=== PATIENT | male | born 1965 | race Caucasian/White ===

== ENCOUNTER 2020-12-25 03:35 | Inpatient (IN) | payer MEDICAID, SELFPAY ==
[~2020-12-25] VITALS: Ht 180.3 cm; Wt 88.5 kg
--- NOTE | 2020-12-25 03:42 | NUR ---
Patient to ER bed 7 to gown for evaluation. Side rails up.
[2020-12-25 03:43] VITALS: BP_SYST 172
--- NOTE | 2020-12-25 03:45 | NUR ---
# 20 gauge angiocath placed to LAC. Use of asceptic technique. Opsite placed over site. Blood return noted. Blood for lab drawn from site. Flushed with 10 cc of normal saline. No evidence of infiltration noted. Patient tolerated well.
--- NOTE | 2020-12-25 03:51 | NUR ---
Pt BIB family to ED C/O acute CP substernal / non-radiating Hx of heart cath / stents placement x 3 No allergies, VSS Resting on gurney rails up
--- NOTE | 2020-12-25 03:53 | NUR ---
Dr. Monae bedside for pt eval
[2020-12-25] MEDS ORDERED: CLOP75TA32 PO (04:00)
[2020-12-25] MEDS ORDERED: ASPI-1393 PO (04:00)
[2020-12-25] MEDS ORDERED: METO25TA6 PO (04:00)
[2020-12-25] MEDS ORDERED: MORPHINE 4 MG INJ. 4 MG/ML VIAL ONE (04:04)
[2020-12-25] MEDS ORDERED: MORPHINE 2 MG/ML INJ. SYRINGE ONE (04:05)
[2020-12-25] MEDS ORDERED: MORPHINE 4 MG INJ. 4 MG/ML VIAL IVP ONE (04:15)
[2020-12-25 04:27] LABS: BASOPHILS # (AUTO) 0.1 K/uL (0.0-0.2); BASOPHILS % (AUTO) 1.1 % (0.0-2.0); EOSINOPHILS # (AUTO) 0.1 K/uL (0.0-0.4); EOSINOPHILS % (AUTO) 1.2 % (0.0-4.0); HEMATOCRIT 45.1 % (36-54); HEMOGLOBIN 15.3 g/dL (14.0-18.0); LYMPHOCYTES # (AUTO) 1.8 K/uL (1.0-5.5); LYMPHOCYTES % (AUTO) 28.9 % (20.5-51.5); MEAN CORPUSCULAR HEMOGLOBIN 30 pg (27-31); MEAN CORPUSCULAR HGB CONC 34 % (32-36); MEAN CORPUSCULAR VOLUME 89 fL (79.0-98.0); MONOCYTES # (AUTO) 0.8 K/uL (0.0-1.0); MONOCYTES % (AUTO) 12.8 % (1.7-9.3); NEUTROPHILS # (AUTO) 3.6 K/uL (1.8-7.7); PLATELET COUNT (AUTO) 307 K/uL (130-430); RED BLOOD CELL COUNT(AUTO) 5.08 MIL/uL (4.2-6.2); RED CELL DISTRIBUTION WIDTH 14.2 % (9.0-15.0); WHITE BLOOD COUNT (AUTO) 6.3 K/uL (4.8-10.8)
[2020-12-25 04:33] LABS: CALCIUM 8.7 mg/dL (8.4-11.0); CREATININE 0.93 mg/dL (0.55-1.30); POTASSIUM 3.8 mmol/L (3.5-5.1)
[2020-12-25 04:37] LABS: INR 0.8 (0.80-1.20)
[2020-12-25 04:39] LABS: TOTAL BILIRUBIN 0.2 mg/dL (0.0-1.0)
[2020-12-25] MEDS ORDERED: IOHEXOL 350 mgI/mL, 150 ML INFUS..BTL IV ONE (04:39)
--- NOTE | 2020-12-25 04:50 | NUR ---
Portable X Ray bedside well tolerated
[2020-12-25] MEDS ORDERED: NITROGLYCERIN 0.4 MG TAB.SUBL SL ONE (05:00)
--- NOTE | 2020-12-25 05:08 | NUR ---
Pt taken to Radiology for IV contrast CT studies
[2020-12-25] MEDS ORDERED: ONDANSETRON HCL 4 MG/2 ML VIAL IVP ONE ×2 (05:30→10:45)
--- NOTE | 2020-12-25 05:31 | NUR ---
Pt back from Radiology well tolerated
[2020-12-25] MEDS ORDERED: KETOROLAC TROMETHAMINE 15 MG VIAL IVP ONE (06:15)
[2020-12-25] MEDS ORDERED: MORPHINE 2 MG/ML INJ. SYRINGE IVP PRN ×2 (07:00)
--- NOTE | 2020-12-25 07:05 | NUR ---
REPORT RECEIVED FROM PAXTON SINGH FOR CONTINUING CARE
--- NOTE | 2020-12-25 07:25 | NUR ---
PT RESTING IN [facility], AAOX4, NO DISTRESS NOTED
--- NOTE | 2020-12-25 07:51 | NUR ---
BREAKFAST TRAY PROVIDED TO PT
--- NOTE | 2020-12-25 08:22 | NUR ---
CONSULT CALLED PAGED DR SCOTT [phone] LEFT MESSAGE WITH DR ANDRADE
--- NOTE | 2020-12-25 09:09 | NUR ---
DR. LOVE AT THE BEDSIDE EXAMINING PT
[2020-12-25] MEDS: NORMAL SALINE 5 ML DISP.SYRIN IVF SCH ×3 (09:15→21:55)
[2020-12-25] MEDS ORDERED: ASPIRIN 81 MG TABLET(ECOTRIN) PO ONE (09:45)
[2020-12-25] MEDS ORDERED: ATORVASTATIN 20 MG TABLET PO ONE (09:45)
[2020-12-25] MEDS ORDERED: METOPROLOL TARTRATE 25 MG TABLET PO ONE (09:45)
[2020-12-25] MEDS ORDERED: CLOPIDOGREL BISULFATE 75 MG TABLET PO ONE (09:45)
--- NOTE | 2020-12-25 09:47 | NUR ---
ECHO AT THE BEDSIDE
--- NOTE | 2020-12-25 10:24 | NUR ---
PT PROVIDED WITH HOSPITAL BED, LININ CHANGE.
[2020-12-25] MEDS: MORPHINE 2 MG/ML INJ. SYRINGE IVP PRN ×2 (10:40→22:02)
[2020-12-25] MEDS ORDERED: ONDANSETRON HCL 4 MG/2 ML VIAL ONE (10:44)
--- NOTE | 2020-12-25 12:00 | NUR ---
PT SLEEPING IN GURNEY, EVEN UNLABORED BREATHS, NO DISTRESS NOTED
--- NOTE | 2020-12-25 13:12 | NUR ---
DR. MUNOZ AT THE BEDSIDE EXAMINING PT
--- NOTE | 2020-12-25 16:21 | NUR ---
PT RESTING IN [facility], AAOX4, NO DISTRESS NOTED
--- NOTE | 2020-12-25 19:11 | NUR ---
REPORT GIVEN TO PAXTON MAGAÑA FOR CONTINUING CARE
--- NOTE | 2020-12-25 20:12 | NUR ---
Patient resting quietly. No acute distress noted. Vital signs within normal range.
--- NOTE | 2020-12-25 20:39 | NUR ---
Patient will be admitted to care of Dr. Tinajero. Admitted to TELE unit. Will go to room 103B. Belongings list completed. Complete and up to date summary report printed. SBAR report to be given at bedside with opportunity for questions.
--- NOTE | 2020-12-25 21:20 | NUR ---
Admission Note Received patient from ER with diagnosis of CHEST PAIN. Initial Plan of Care discussed-patient verbalized understanding. Oriented to room, call light, pain management and safety.
[2020-12-25] MEDS: METOPROLOL TARTRATE 25 MG TABLET PO SCH (22:00)
[2020-12-25 22:04] VITALS: BP_SYST 140
--- NOTE | 2020-12-25 23:03 | NUR ---
PATIENT REQUESTING SLEEPING MEDICATION STATES THEY WERE PRESCRIBED ATIVAN TO SLEEP INFORMED DR. SCOTT ORDERS ATIVAN 1mg PO QHS
--- NOTE | 2020-12-25 23:03 | NUR ---
HIGH ALERT NOTE: Called Dr. SCOTT back at [phone] identified within the medical roster to verify physician authenticity.
[2020-12-25] MEDS ORDERED: LORazepam 1 MG TABLET PO PRN (23:15)
[2020-12-26] VITALS: BP_SYST 125
--- NOTE | 2020-12-26 | NUR ---
ROUNDING NOTES Patient resting in bed - no s/s pain or distress noted. Respirations even and unlabored - head of bed elevated. IV site patent - no s/s redness, infection, or infiltration. Bed locked and in lowest position. Call light within reach.
[2020-12-26] MEDS: MORPHINE 2 MG/ML INJ. SYRINGE IVP PRN ×4 (02:18→13:20)
[2020-12-26] MEDS: NORMAL SALINE 5 ML DISP.SYRIN IVF SCH ×2 (05:54→14:27)
[2020-12-26 07:46] VITALS: BP_SYST 143
[2020-12-26 07:50] LABS: BASOPHILS % (AUTO) 0.6 % (0.0-2.0); EOSINOPHILS # (AUTO) 0.2 K/uL (0.0-0.4); EOSINOPHILS % (AUTO) 3.2 % (0.0-4.0); HEMATOCRIT 42.9 % (36-54); HEMOGLOBIN 14.5 g/dL (14.0-18.0); LYMPHOCYTES # (AUTO) 1.7 K/uL (1.0-5.5); LYMPHOCYTES % (AUTO) 31.3 % (20.5-51.5); MEAN CORPUSCULAR HEMOGLOBIN 30 pg (27-31); MEAN CORPUSCULAR HGB CONC 34 % (32-36); MEAN CORPUSCULAR VOLUME 89 fL (79.0-98.0); MONOCYTES # (AUTO) 0.6 K/uL (0.0-1.0); MONOCYTES % (AUTO) 11.6 % (1.7-9.3); NEUTROPHILS # (AUTO) 2.9 K/uL (1.8-7.7); NEUTROPHILS % (AUTO) 53.3 % (40.0-70.0); PLATELET COUNT (AUTO) 279 K/uL (130-430); RED BLOOD CELL COUNT(AUTO) 4.83 MIL/uL (4.2-6.2); RED CELL DISTRIBUTION WIDTH 14.1 % (9.0-15.0); WHITE BLOOD COUNT (AUTO) 5.5 K/uL (4.8-10.8)
[2020-12-26 07:56] LABS: INR 0.9 (0.80-1.20); PROTHROMBIN TIME 9.9 SECS (9.5-12.5)
--- NOTE | 2020-12-26 08:28 | NUR ---
INITIAL ROUNDS LATE ENTRY FOR 0746 Received pt AAOx4, no s/s resp distress, c/o nausea and mid-epigastric pain, heartburn-will check on medications. Plan of care for the day reviewed with pt-pt verbalized his understanding. Pain management, disease process, skin and safety discussed-teach back done. Call light within reach.
[2020-12-26] MEDS ORDERED: ATORVASTATIN 20 MG TABLET PO SCH (09:00)
[2020-12-26] MEDS ORDERED: ASPIRIN 81 MG TABLET(ECOTRIN) PO SCH (09:00)
[2020-12-26] MEDS ORDERED: CLOPIDOGREL BISULFATE 75 MG TABLET PO SCH (09:00)
[2020-12-26] MEDS ORDERED: PANTOPRAZOLE SODIUM 40 MG/VIAL (PROTONIX) IVP ONE (09:15)
[2020-12-26] MEDS ORDERED: ONDANSETRON HCL 4 MG/2 ML VIAL IVP PRN (09:15)
[2020-12-26] MEDS: METOPROLOL TARTRATE 25 MG TABLET PO SCH (09:30)
--- NOTE | 2020-12-26 09:40 | NUR ---
NAUSEA/HEARTBURN Pt c/o nausea and heartburn, pt given Zofran for nausea and Protonix for heartburn. Light turned down low and curtain pulled to help promote rest. Call light within reach.
[2020-12-26 10:01] LABS: ALANINE AMINOTRANSFERASE 28 U/L (12-78); ALBUMIN 3.4 g/dL (3.4-4.8); ANION GAP 5 (5-15); ASPARTATE AMINOTRANSFERASE 25 U/L (10-37); CALCIUM 8.2 mg/dL (8.4-11.0); CHLORIDE 106 mmol/L (98-107); CREATININE 0.95 mg/dL (0.55-1.30); GLUCOSE 87 mg/dL (70-99); POTASSIUM 3.9 mmol/L (3.5-5.1); SODIUM SERUM 141 mmol/L (136-145); THYROID STIMULATING HORMONE 0.39 uIu/mL (0.36-3.74); TOTAL BILIRUBIN 0.4 mg/dL (0.0-1.0); UREA NITROGEN, BLOOD 11 mg/dL (8-21)
[2020-12-26 10:15] LABS: GFR AFRICAN AMERICAN 105 mL/min (>90)
--- NOTE | 2020-12-26 10:15 | NUR ---
NAUSEA AND HEARTBURN RESOLVED.
[2020-12-26 11:00] LABS: CHOLESTEROL 126 mg/dL (<200); HDL CHOLESTEROL 31 mg/dL (>45); LDL CHOLESTEROL 77 mg/dL (<100); TRIGLYCERIDES 153 mg/dL (30-150)
[2020-12-26] MEDS ORDERED: DOCUSATE SODIUM 100 MG CAPSULE PO ONE (14:15)
[2020-12-26] MEDS ORDERED: LIP20 PO (14:17)
[2020-12-26] MEDS ORDERED: DOCU-144 PO (14:23)
[2020-12-26 14:34] VITALS: BP_SYST 126
--- NOTE | 2020-12-26 14:59 | NUR ---
PATIENT DISCHARGED Patient given medication reconciliation form and D/C instructions. Exit Care on Chest Pain and Abd pain explained and provided. Patient verbalized his understanding. MD discussed with patient the results and treatment provided. Ambulatory with steady gait for discharge to home. Patient in stable condition, ID band removed. IV catheter removed, intact and dressing applied, no active bleeding. Rx of Lipitor and Colace explained and given. Patient educated on pain management. All belongings sent with patient. Patient left floor ambulatory to private vehicle in no distress.
[2020-12-27] MEDS ORDERED: PANTOPRAZOLE SODIUM 40 MG/VIAL (PROTONIX) IVP SCH (09:00)
== END 2020-12-26 14:59 | disposition home or self-care (01) | DRG 198 ==
LOC: SED 03:35 → STU 06:54
PROVIDERS: ADMIT Internal Medicine; ATTEND Internal Medicine
DX: R07.89 Other chest pain (principal); I25.10 Atherosclerotic heart disease of native coronary artery without angina pectoris; F41.9 Anxiety disorder, unspecified; Z20.822 Contact with and (suspected) exposure to COVID-19; Z79.02 Long term (current) use of antithrombotics/antiplatelets; Z79.82 Long term (current) use of aspirin; Z87.891 Personal history of nicotine dependence; Z90.49 Acquired absence of other specified parts of digestive tract; Z95.818 Presence of other cardiac implants and grafts; Z56.0 Unemployment, unspecified
CPT/HCPCS: 36415; 71045; 71275; 72191; 74175; 76376; 80053; 80061; 82550; 84443; 84484; 85025; 85610-TC; 85730-TC; 87081; 93005; 93306; 96374; 96375; 99285; C9113; G0378; J1885; J2270; J2405; Q9967

== ENCOUNTER 2021-08-26 00:45 | Emergency (ER) | payer MEDICAID ==
[~2021-08-26] VITALS: Ht 180.3 cm; Wt 83.9 kg
[~2021-08-26 00:45] MED LIST: ASPI-1393 PO; CLOP75TA32 PO; DOCU-144 PO; LIP20 PO; METO25TA6 PO
[2021-08-26 01:00] VITALS: BP_SYST 154
== END 2021-08-26 01:55 | disposition left against medical advice (07) ==
LOC: SED 00:45
DX: H53.8 Other visual disturbances (principal); R51.9 Headache, unspecified; Z53.21 Procedure and treatment not carried out due to patient leaving prior to being seen by health care provider